=== PATIENT | male | born 1945 | race Caucasian/White ===

== ENCOUNTER 2023-03-10 20:40 | Emergency (ER) | payer OTHER, MEDICAID ==
[~2023-03-10] VITALS: Ht 172.7 cm; Wt 70.0 kg
[2023-03-10 20:42] VITALS: O2SAT 98
[2023-03-10 21:48] LABS: BASOPHILS % 0.3 % (0.0-2.0); EOSINOPHILS % 1.1 % (0.0-5.0); HEMOGLOBIN. 10.9 g/dL (14.0-18.0); LYMPHOCYTES % 21.8 % (20.0-50.0); MEAN CORPUSCULAR HEMOGLOBIN 28.2 pg (28.0-32.0); MEAN CORPUSCULAR HGB CONC 34.1 g/dL (31.0-37.0); MEAN CORPUSCULAR VOLUME 82.5 fL (80.0-94.0); MEAN PLATELET VOLUME 7.3 fl (7.4-10.4); MONOCYTES % 9.1 % (2.0-8.0); NEUTROPHILS % 67.7 % (40.0-76.0); PLATELET 265 x1000/uL (130-400); RED BLOOD CELL COUNT 3.87 mill/uL (4.7-6.1); RED CELL DISTRIBUTION WIDTH 15.5 % (11.6-14.6)
[2023-03-10 21:57] LABS: D-DIMER 0.91 mg/L FEU (<0.50); PROTHROMBIN TIME 10.5 sec (9.6-11.0)
[2023-03-10 22:04] LABS: ALANINE AMINOTRANSFERASE 16 IU/L (10-49); ALBUMIN 4.2 g/dL (3.2-4.8); ASPARTATE AMINOTRANSFERASE 18 IU/L (<34); BILIRUBIN TOTAL 0.2 mg/dL (0.1-1.0); CALCIUM 9.2 mg/dL (8.7-10.4); CARBON DIOXIDE 25 mEq/L (21-32); CHLORIDE 99 mEq/L (98-107); GLUCOSE 148 mg/dL (70-105); POTASSIUM 3.6 mEq/L (3.5-5.1); PROTEIN TOTAL 6.6 g/dL (6.0-8.3); SODIUM 133 mEq/L (136-145); UREA NITROGEN BLOOD 16 mg/dL (9-23)
[2023-03-10 22:10] LABS: TROPONIN I HIGH SENSITIVITY < 4 ng/L (3.0-53)
[2023-03-10 23:47] LABS: TROPONIN I HIGH SENSITIVITY 4 ng/L (3.0-53)
[2023-03-11 01:46] LABS: TROPONIN I HIGH SENSITIVITY 4 ng/L (3.0-53)
[2023-03-11 10:27] VITALS: BP 127/71; PULSE 69; RESP 15; TEMP 98.6
[2023-03-11] MEDS ORDERED: IOHEXOL-350 100 ML BOTTLE ONE (22:50)
== END 2023-03-11 10:29 | disposition short-term general hospital (02) ==
LOC: ER 20:40
DX: R56.9 Unspecified convulsions (principal); I10 Essential (primary) hypertension; Z98.2 Presence of cerebrospinal fluid drainage device
CPT/HCPCS: 99285; 71045 ×2; 80053; 83880; 85025; 85379; 85610; 84484 ×2; 36415 ×2; 71275; 74174; 72040; 74018; 70450; Q9967